=== PATIENT | male | born 1970 | race Caucasian/White ===

== ENCOUNTER → 2017-09-03 | Outpatient (REF) | payer BC ==
[2014-09-29 09:01] VITALS: BMI 30.5
[~2017-09-03] MED LIST: AMI10 PO; AMIT-104 PO; AMO875 PO; ARTO15 OU; ASP81 PO; AUG500 PO; CEFU500T10 PO; CIPR-326 PO; DOCU-416 PO; HYDR2TAB74 PO; HYOS0.1287 SL; IBUP-1687 PO; KET10 PO; LANS1COM7 PO; LANS30CA70 PO; LEVO-85 PO; LEVO750T25 PO; MIRT-1 PO; MULT-859 PO; NIT100 PO; PER PO; PROM-110 PO; SULF-198 PO; TAMS0.4C25 PO; TES75PMPPT TD; [UNRECOGNIZED DRUG - OTHER]
[2017-09-03 11:49] LABS: PLATELET COUNT, AUTOMATED 196 K/uL (150-450)
== END ==
LOC: ZZSENDIN 11:14
PROVIDERS: ATTEND Family Medicine
DX: R73.03 Prediabetes (principal)
CPT/HCPCS: 85025